=== PATIENT | female | born 1935 | race Caucasian/White ===

== ENCOUNTER 2017-09-26 10:03 | Emergency (ER) | payer OTHER | END 2017-09-26 10:32 | disposition home or self-care (01) | LOC: ER 10:03 | DX: S09.90XD Unspecified injury of head, subsequent encounter (principal); E78.00 Pure hypercholesterolemia, unspecified; Z88.5 Allergy status to narcotic agent; Z88.8 Allergy status to other drugs, medicaments and biological substances; X58.XXXD Exposure to other specified factors, subsequent encounter | CPT/HCPCS: 99281 ==